=== PATIENT | male | born 1965 | race Caucasian/White ===

== ENCOUNTER 2025-01-25 08:11 | Outpatient (CLI) | payer OTHER | END 2025-01-25 08:12 | disposition home or self-care (01) | LOC: CSHWCC 08:11 | PROVIDERS: ATTEND Nurse Practitioner Family | DX: E11.621 Type 2 diabetes mellitus with foot ulcer (principal); L97.521 Non-pressure chronic ulcer of other part of left foot limited to breakdown of skin; I69.352 Hemiplegia and hemiparesis following cerebral infarction affecting left dominant side; E11.59 Type 2 diabetes mellitus with other circulatory complications | CPT/HCPCS: 97597; 99213; G0463 ==